=== PATIENT | male | born 1990 | race Caucasian/White ===

== ENCOUNTER 2019-02-09 11:59 | Day surgery (SDC) | payer OTHER ==
[~2019-02-09] VITALS: Ht 180.3 cm; Wt 90.7 kg
[2019-02-09] MEDS ORDERED: TYLENOL325 MG PO (12:16)
[2019-02-09] MEDS ORDERED: CLARITIN10 MG PO (12:16)
[2019-02-09] MEDS ORDERED: DICLOFENAC SODI75 MG PO (14:35)
[2019-02-09] MEDS ORDERED: HYDROCODON-ACE1 EA11 PO (14:35)
[2019-02-09] MEDS ORDERED: AUGMENTIN 875-1 EACH PO (14:36)
--- NOTE | 2019-02-09 14:47 | NUR ---
02/09/19 1447 Olena Ritchie 1438: PT ARRIVES TO PACU WITH EYES CLOSED, JAW THRUST PERFORMED. PT HAS MASK IN PLACE WITH 10L O2, SATS 100%. PT NON AROUSAL TO VERBAL OR PAINFUL STIMULI. OPA IN PLACE. 1445: JAW THRUST CONT WITH OPA IN PLACE.
--- NOTE | 2019-02-09 18:16 | NUR ---
PT IS ALERT, ORIENTED, DENIES ANY NAUSEA OR DISCOMFORT, ATE SOUP AND CRACKERS FOR DINNER, TAKING FLUIDS WELL, UP TO BATHROOM TO VOID 500ML YELLOW URINE. SL DC'D FROM L HAND INTACT. REVIEWED DISCHARGED INSTRUCTIONS WITH AND PATIENT. DOING WELL KEEPING R ARM ELEVATED AND IN SLING, REPORTS NUMBNESS IN FINGERS UNCHANGED SINCE COMING TO FLOOR,NO PAIN, FINGERS WARM WITH GOOD COLOR. DRSG IS CDI, SECURE. DENIES ANY CONCERNS OR QUESTIONS.
--- NOTE | 2019-02-09 18:30 | NUR ---
RECIEVED CALL FROM DR NOBLE TO GIVE PATIENT AUGMENTIN 875MG PO NOW AND TO START TAKING PERSCRIPTION DIRECTED TOMORROW. INSTRUCTED PT AND TO CALL DR NOBLE OFFICE ON MONDAY TO SCHEDULE APPOINTMENT TO BE SEEN MONDAY OR MONDAY.
--- NOTE | 2019-02-10 10:08 | OR ---
[facility] [address] [place], [place] [address] Signed DATE OF OPERATION: 02/09/2019 SURGEON: Margo Jason MD PREOPERATIVE DIAGNOSIS: Dog bite, right elbow. POSTOPERATIVE DIAGNOSIS: Dog bite, right elbow. PROCEDURE PERFORMED: 1. Irrigation and debridement of skin, subcutaneous tissue and muscle, right elbow. 2. Direct repair, brachioradialis. CLINICAL NURSING ASSISTANT: Dominique Wallis PA-C. Dominique was present and critical for all portions of the procedure. ANESTHESIA: General. BLOOD LOSS: Minimal. TOURNIQUET TIME: Zero. 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 This afternoon, he was attacked by a dog and bitten in multiple places on his right upper extremity. He had multiple puncture wounds down the forearm particularly along the ulnar border and a 6 cm V-shaped laceration in his antecubital space with muscle involvement. Risks and benefits of operative treatment were discussed with him and his and they elected to proceed. DESCRIPTION OF PROCEDURE: Once consent was obtained, he was taken emergently to the operating room. After adequate anesthesia, the right arm was prepped and draped in a standard sterile fashion. The superficial wounds were cleaned and left open. Most of them were just small puncture wounds from the teeth. The antecubital wound was then evaluated. This was a Electronically Signed By: MARGO JASNO MD 02/10/19 1008 PATIENT NAME: RAMY RITCHIE OPERATIVE REPORT DATE OF : 88 REPORT #: [id number] PHYSICIAN: MARGO JASON MD PCP: NO PRIMARY CARE PHYSICIAN REPORT IS CONFIDENTIAL AND NOT TO BE RELEASED WITHOUT AUTHORIZATION [facility] [address] [place] [id number] Signed V-shape 6 to 7 cm long laceration with the apex medially. Underlying that, there was a large cavity subcutaneous extending over to the lateral epicondyle. The brachioradialis was transected through the muscle belly about 70%. This was slightly retracted. There was no foreign bodies noted in the wound or on the x-ray. No neurovascular structures were identified. The biceps sheath was not involved. The wound was then copiously irrigated with dilute iodine solution followed by normal saline. The muscle belly of the brachioradialis was quite and lacerated pretty much transversely. I elected to go ahead and repair it using 2-0 Monocryl and this repaired fairly closely with good purchase in the tissue. The wound was again irrigated and then the subcutaneous tissue was closed using 3-0 Monocryl and 3-0 nylon for the skin. All wounds were dressed with Allevyn silver dressings and he was placed into a posterior elbow splint at 40 degrees. He tolerated the procedure well. All sponge, needle, and instrument counts were correct. Margo Jason MD BA/NIURKA /[id number] Copies: ~ Electronically Signed By: MARGO JASON MD 02/10/19 1008 PATIENT NAME: RAMY RITCHIE OPERATIVE REPORT DATE OF : 88 REPORT #: [id number] PHYSICIAN: MARGO JASON MD PCP: NO PRIMARY CARE PHYSICIAN REPORT IS CONFIDENTIAL AND NOT TO BE RELEASED WITHOUT AUTHORIZATION
== END 2019-02-09 19:05 | disposition home or self-care (01) ==
LOC: ED 11:59 → MS 13:43 → ED 13:43 → MS 13:43 → DS 14:00 → MS 14:01 → DS 19:05 → MS 19:05
PROVIDERS: Specialist
PROC: 3E0T3BZ Introduction of Anesthetic Agent into Peripheral Nerves and Plexi, Percutaneous Approach (ICD-10-PCS; 2019-02-09)
PROC: 0KQ70ZZ Repair Right Upper Arm Muscle, Open Approach (ICD-10-PCS; principal; 2019-02-09 13:45)
DX: S51.051A Open bite, right elbow, initial encounter (principal); G89.18 Other acute postprocedural pain; W54.0XXA Bitten by dog, initial encounter; Y93.89 Activity, other specified; Y99.0 Civilian activity done for income or pay; Z79.899 Other long term (current) drug therapy
CPT/HCPCS: 00400; 64417; 73090; 76942; 90471; 90715; 96374; 99284-25; J0330; J0690; J0735; J1100; J1885; J2250; J2405; J2704; J2765; J3010; J7121